=== PATIENT | female | born 2000 | race Caucasian/White ===

== ENCOUNTER 2022-07-10 03:07 | Emergency (ER) | payer OTHER ==
[~2022-07-10] VITALS: Ht 154.9 cm; Wt 45.4 kg
[~2022-07-10 03:07] MED LIST: ALBUTEROL2.5 MG/3 M; BUDEO.25; Nasonex NS; SINGULAIR PO
== END 2022-07-10 12:22 | disposition home or self-care (01) ==
LOC: ER 03:07
DX: R10.11 Right upper quadrant pain (principal); R10.2 Pelvic and perineal pain; N80.9 Endometriosis, unspecified